=== PATIENT | female | born 1945 | race Caucasian/White ===

== ENCOUNTER 2017-05-20 15:42 | Outpatient (CLI) | payer OTHER, MEDICAID ==
[2017-05-20 16:37] LABS: ANION GAP 9 (5-15); CALCIUM 9.7 mg/dL (8.4-11.0); CHLORIDE 108 mmol/L (98-107); GLUCOSE 104 mg/dL (70-99); POTASSIUM 4.2 mmol/L (3.5-5.1); SODIUM SERUM 140 mmol/L (136-145); UREA NITROGEN, BLOOD 30 mg/dL (8-21)
[2017-05-20 16:42] LABS: BASOPHILS % (AUTO) 0.3 % (0.0-2.0); EOSINOPHILS # (AUTO) 0.1 K/uL (0.0-0.4); HEMATOCRIT 38.9 % (36-48); HEMOGLOBIN 12.9 g/dL (12.0-16.0); LYMPHOCYTES # (AUTO) 1.6 K/uL (1.0-5.5); LYMPHOCYTES % (AUTO) 34.9 % (20.5-51.5); MEAN CORPUSCULAR HEMOGLOBIN 30 pg (27-31); MEAN CORPUSCULAR HGB CONC 33 % (32-36); MEAN CORPUSCULAR VOLUME 89 fL (79.0-98.0); MONOCYTES # (AUTO) 0.3 K/uL (0.0-1.0); MONOCYTES % (AUTO) 5.8 % (1.7-9.3); NEUTROPHILS # (AUTO) 2.5 K/uL (1.8-7.7); PLATELET COUNT (AUTO) 192 K/uL (130-430); RED BLOOD CELL COUNT(AUTO) 4.36 MIL/uL (4.2-6.2); RED CELL DISTRIBUTION WIDTH 11.8 % (9.0-15.0); WHITE BLOOD COUNT (AUTO) 4.5 K/uL (4.8-10.8)
[2017-05-20 16:44] LABS: TOTAL IRON BIND. CAPACITY 378 ug/dL (250-450)
[2017-05-22 05:13] LABS: FERRITIN 52 ng/mL (15-150); FOLATE (FOLIC ACID) >20.0 ng/mL (>3.0)
== END 2017-05-20 19:59 | disposition home or self-care (01) ==
LOC: SLB 15:42
PROVIDERS: ATTEND Internal Medicine Gastroenterology
DX: D50.9 Iron deficiency anemia, unspecified (principal)
CPT/HCPCS: 36415; 80048; 82607; 82728; 82746; 83540-TC; 83550-TC; 85025

== ENCOUNTER 2017-05-29 10:14 | Outpatient (CLI) | payer OTHER, MEDICAID | END 2017-05-29 18:34 | disposition home or self-care (01) | LOC: SRD 10:14 | DX: M19.072 Primary osteoarthritis, left ankle and foot (principal); Z98.890 Other specified postprocedural states ==

== ENCOUNTER 2017-11-22 11:20 | Outpatient (CLI) | payer OTHER, MEDICAID | END 2017-11-22 19:03 | disposition home or self-care (01) | LOC: SRD 11:20 | PROVIDERS: ATTEND Internal Medicine | DX: M85.80 Other specified disorders of bone density and structure, unspecified site (principal); M19.011 Primary osteoarthritis, right shoulder; M17.0 Bilateral primary osteoarthritis of knee; M89.311 Hypertrophy of bone, right shoulder | CPT/HCPCS: 73030 ==

== ENCOUNTER 2017-12-05 08:38 | Outpatient (CLI) | payer OTHER, MEDICAID | END 2017-12-05 16:38 | disposition home or self-care (01) | LOC: SRD 08:38 | PROVIDERS: ATTEND Internal Medicine | DX: J44.9 Chronic obstructive pulmonary disease, unspecified (principal); I70.90 Unspecified atherosclerosis | CPT/HCPCS: 71046-TC ==